=== PATIENT | female | born 2000 | race Two or more races ===

== ENCOUNTER 2022-10-15 23:30 | Emergency (ER) | payer OTHER ==
[~2022-10-15] VITALS: Ht 149.9 cm; Wt 39.0 kg
[2022-10-15] MEDS ORDERED: PEPCID AC20 MG PO (23:57)
[2022-10-15] MEDS ORDERED: PRENA1 TRUE CO1 EACH PO (23:57)
[2022-10-15] MEDS ORDERED: FOLIC ACID20 MG PO (23:57)
== END 2022-10-16 03:53 ==
LOC: ER 23:30
DX: O26.891 Other specified pregnancy related conditions, first trimester (principal); Z3A.10 10 weeks gestation of pregnancy; T14.8XXA Other injury of unspecified body region, initial encounter; X83.8XXA Intentional self-harm by other specified means, initial encounter; Y93.9 Activity, unspecified; Y92.018 Other place in single-family (private) house as the place of occurrence of the external cause; Y99.9 Unspecified external cause status

== ENCOUNTER 2022-10-16 23:03 | Emergency (ER) | payer OTHER ==
[~2022-10-16] VITALS: Ht 152.4 cm; Wt 40.8 kg
[~2022-10-16 23:03] MED LIST: FOLIC ACID20 MG PO; PEPCID AC20 MG PO; PRENA1 TRUE CO1 EACH PO
== END 2022-10-17 04:46 ==
LOC: ER 23:03
DX: O26.891 Other specified pregnancy related conditions, first trimester (principal); Z3A.11 11 weeks gestation of pregnancy; S13.4XXA Sprain of ligaments of cervical spine, initial encounter; S39.91XA Unspecified injury of abdomen, initial encounter; V49.9XXA Car occupant (driver) (passenger) injured in unspecified traffic accident, initial encounter; Y93.9 Activity, unspecified; Y92.413 State road as the place of occurrence of the external cause; Y99.9 Unspecified external cause status